=== PATIENT | female | born 1955 | race Caucasian/White ===

== ENCOUNTER 2019-06-02 20:56 | Observation (INO) | payer BC ==
[~2019-06-02] VITALS: Ht 157.5 cm; Wt 94.4 kg
[2019-06-02 22:23] LABS: BASOPHILS # (AUTO) 0.03 x10^3/uL (0-0.1); BASOPHILS % (AUTO) 1 % (0-1); EOSINOPHILS # (AUTO) 0.14 x10^3/uL (0-0.4); EOSINOPHILS % (AUTO) 2 % (1-7); LYMPHOCYTES # (AUTO) 1.78 x10^3/uL (1-3.4); LYMPHOCYTES % (AUTO) 28 % (22-44); MD NO; MEAN CORPUSCULAR HEMOGLOBIN 28.2 pg (27.0-34.8); MEAN CORPUSCULAR HGB CONC 32.5 g/dL (32.4-35.8); MEAN CORPUSCULAR VOLUME 86.7 fL (80-100); MONOCYTES # (AUTO) 0.35 x10^3/uL (0.2-0.8); MONOCYTES % (AUTO) 5 % (2-9); NEUTROPHILS # (AUTO) 4.15 x10^3/uL (1.8-6.8); NEUTROPHILS % (AUTO) 64 % (42-75); PLATELET COUNT 243 x10^3/uL (130-400); RED BLOOD COUNT 4.33 x10^6/uL (3.82-5.3); RED CELL DISTRIBUTION WIDTH 14.1 % (9.6-15.2)
[2019-06-02 22:29] LABS: ALANINE AMINOTRANSFERASE 18 U/L (12-78); ALBUMIN 3.3 g/dL (3.4-5.0); ANION GAP 6 mmol/L (5-15); CALCIUM 8.8 mg/dL (8.5-10.1); CHLORIDE 108 mmol/L (98-107); CREATININE 2.17 mg/dL (0.55-1.02)
[2019-06-02 22:33] LABS: ALKALINE PHOSPHATASE 73 U/L (45-117); BILIRUBIN,TOTAL 0.2 mg/dL (0.2-1.0); TOTAL PROTEIN 7.2 g/dL (6.4-8.2)
[2019-06-02 22:37] LABS: TROPONIN I 0.147 ng/mL (0.000-0.045)
[2019-06-03] MEDS ORDERED: ONDANSETRON 2MG/ML, 2ML IVPush PRN
[2019-06-03] MEDS ORDERED: BISACODYL 10 MG SUPP PR PRN
[2019-06-03] MEDS ORDERED: LIDODERM 5% PATCH TD PRN
[2019-06-03] MEDS ORDERED: ACETAMINOPHEN 325 MG TABLET PO PRN
[2019-06-03] MEDS ORDERED: TEMAZEPAM 15 MG CAPSULE PO PRN
[2019-06-03] MEDS ORDERED: hydrALAzine 20 MG/ML, 1ML IVPush PRN
[2019-06-03] MEDS ORDERED: morphine SULFATE 10 MG/ML, 1ML IVPush PRN
--- NOTE | 2019-06-03 01:16 | NUR ---
REPORT RECEIVED FROM RENETTA OWENS. ASSUMED CARE OF PT
[2019-06-03] MEDS ORDERED: HEPARIN 5,000 UNITS/ML, 1ML ONE (02:44)
[2019-06-03] MEDS: HEPARIN 5,000 UNITS/ML, 1ML SQ SCH ×3 (02:47→16:02)
--- NOTE | 2019-06-03 02:48 | NUR ---
BREAK RN: PT. MEDICATED PER JUL. MADE PT. AWARE OF HOLD STATUS IN ED AND ATTEMPTED TO PROVIDE PT. WITH HOSPITAL BED; PT. ADAMANTLY REFUSING HOSPTIAL BED. STATES "I AM PLENTY COMFORTABLE ON THIS BED, ALL I WOULD LIKE IS MORE BLANKETS." MORE BLANKETS PROVIDED. PT. DENIES OTHER NEEDS. ALL LIGHTS OFF AND DOOR CLOSED PER PT. REQUEST. CALL LIGHT IN REACH AND ALL SAFETY MEASURES OBSERVED.
--- NOTE | 2019-06-03 04:40 | NUR ---
PT SLEEPING, RESPIRATIONS EVEN AND UNLABORED. VITALS STABLE. WILL CONTINUE TO MONITOR.
[2019-06-03 04:41] LABS: TROPONIN I 0.127 ng/mL (0.000-0.045)
--- NOTE | 2019-06-03 05:40 | NUR ---
PT SLEEPING. RESPIRATIONS EVEN AND UNLABORED. ALL VITALS REMAIN STABLE. WILL CONTINUE TO MONITOR.
--- NOTE | 2019-06-03 06:17 | NUR ---
PT AWAKE, AMBULATORY TO RESTROOM, STEADY GAIT NOTED. PT OFFERED A HOSPITAL BED AGAIN, STILL REFUSES IT. PT BACK TO ROOM WITHOUT DIFFICULTY, SITTING IN CHAIR UPON REQUEST, WATCHING TV. DENIES ANY OTHER NEEDS AT THIS TIME.
[2019-06-03] MEDS ORDERED: NEOSPORIN OINT. PKT 1 PACKET ONE (07:18)
--- NOTE | 2019-06-03 07:18 | NUR ---
REPORT TO RENETTA ANAND
--- NOTE | 2019-06-03 07:20 | NUR ---
REC BS REPORT PT SITTING UP IN CHAIR
--- NOTE | 2019-06-03 07:30 | NUR ---
PT REPORTS BREAK IN HTE SKIN OF HER R GREAT TOE PROVIDE HER WITH WARM WATER IN A BASIN WASH CLOTH TOWELS AND NEOSPORIN OINT
--- NOTE | 2019-06-03 10:15 | NUR ---
NM TO BS FOR INJECTION
[2019-06-03 10:27] LABS: TROPONIN I 0.126 ng/mL (0.000-0.045)
[2019-06-03] MEDS ORDERED: REGADENOSON 0.4 MG/5 ML SYRINGE ONE (10:43)
[2019-06-03 13:30] VITALS: BP 168/78
[2019-06-03] MEDS ORDERED: GLIM4TAB4 PO (13:57)
[2019-06-03] MEDS ORDERED: CLOP75TA52 PO (14:02)
[2019-06-03] MEDS ORDERED: ATOR10TA9 PO (14:03)
[2019-06-03] MEDS ORDERED: LISI-167 PO (14:03)
[2019-06-03] MEDS ORDERED: AMLO5TAB10 PO (14:04)
[2019-06-03] MEDS ORDERED: INSU100I13 SC (14:10)
[2019-06-03] MEDS ORDERED: OMEP-110 PO (14:13)
== END 2019-06-03 16:30 | disposition home or self-care (01) ==
LOC: ED 22:02 → EDIP 22:05 → INTOOBSV 22:05 → 5SO 06-03 13:16
PROVIDERS: ADMIT Family Medicine; ATTEND Internal Medicine
DX: I21.4 Non-ST elevation (NSTEMI) myocardial infarction (principal); E11.65 Type 2 diabetes mellitus with hyperglycemia; E11.40 Type 2 diabetes mellitus with diabetic neuropathy, unspecified; I10 Essential (primary) hypertension; M17.0 Bilateral primary osteoarthritis of knee; R53.83 Other fatigue; Z86.73 Personal history of transient ischemic attack (TIA), and cerebral infarction without residual deficits
CPT/HCPCS: 36415; 78452; 80053; 84484; 85025; 93005; 93017; 96372; 99284; A9502; G0378; J1644; J2785

== ENCOUNTER 2019-11-03 06:55 | Inpatient (IN) | payer BC ==
[~2019-11-03] VITALS: Ht 157.5 cm; Wt 92.7 kg
[~2019-11-03 06:55] MED LIST: AMLO5TAB10 PO; ATOR10TA9 PO; CLOP75TA52 PO; GLIM4TAB8 PO; INSU100I13 SC; LISI-167 PO; OMEP-110 PO
[2019-11-03] MEDS ORDERED: NITROGLYCERIN/D5W PMX 250 ML IV PRN (07:01)
--- NOTE | 2019-11-03 07:05 | NUR ---
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 SEEN BY ERP, LAB AT BS.
[2019-11-03] MEDS ORDERED: HEPARIN 25,000 UNITS/250ML PMX 250 ML ONE (07:24)
[2019-11-03 07:28] LABS: BASOPHILS # (AUTO) 0.03 x10^3/uL (0-0.1); BASOPHILS % (AUTO) 0 % (0-1); EOSINOPHILS # (AUTO) 0.15 x10^3/uL (0-0.4); EOSINOPHILS % (AUTO) 2 % (1-7); LYMPHOCYTES # (AUTO) 1.13 x10^3/uL (1-3.4); LYMPHOCYTES % (AUTO) 15 % (22-44); MD NO; MEAN CORPUSCULAR HEMOGLOBIN 28.3 pg (27.0-34.8); MEAN CORPUSCULAR VOLUME 85.6 fL (80-100); MEAN PLATELET VOLUME 10.1 fL (7.4-10.4); MONOCYTES # (AUTO) 0.37 x10^3/uL (0.2-0.8); MONOCYTES % (AUTO) 5 % (2-9); NEUTROPHILS # (AUTO) 5.88 x10^3/uL (1.8-6.8); NEUTROPHILS % (AUTO) 78 % (42-75); PLATELET COUNT 212 x10^3/uL (130-400); RED BLOOD COUNT 4.53 x10^6/uL (3.82-5.3)
[2019-11-03] MEDS ORDERED: HEPARIN 5,000 UNITS/ML, 1ML IV PRN (07:30)
[2019-11-03] MEDS ORDERED: HEPARIN 25,000 UNITS/250ML PMX 250 ML IV PRN (07:30)
[2019-11-03] MEDS ORDERED: HEPARIN 5,000 UNITS/ML, 1ML IV ONE (07:30)
[2019-11-03 07:38] LABS: ANION GAP 5 mmol/L (5-15); CALCIUM 9.1 mg/dL (8.5-10.1); CHLORIDE 111 mmol/L (98-107); CREATININE 2.18 mg/dL (0.55-1.02)
[2019-11-03 07:44] LABS: TROPONIN I 0.634 ng/mL (0.000-0.045)
--- NOTE | 2019-11-03 08:02 | NUR ---
PT RESTING ON GURNEY WITH EYES CLOSED, HEPARIN GTT STOPPED X1 HR PER PROTOCOL, PT RESPONDS APPROP TO STAFF, NAD/DENIES PAIN OR DISCOMFORT, COOMFORT MEASURES PROVIDED, CALL LIGHT WITHIN REACH.
--- NOTE | 2019-11-03 08:05 | NUR ---
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 SEEN BY ERP, LAB AT BS.
--- NOTE | 2019-11-03 08:33 | NUR ---
Pt to be admitted to card-tele, room 517. Report called to Cristal.
[2019-11-03 09:40] VITALS: BP 146/77
[2019-11-03] MEDS ORDERED: NITROGLYCERIN 0.4 MG BOTTLE (25 TABS) SL PRN (10:30)
[2019-11-03] MEDS ORDERED: ONDANSETRON 2MG/ML, 2ML IVPush PRN (10:30)
[2019-11-03] MEDS ORDERED: hydrALAzine 20 MG/ML, 1ML IVPush PRN (10:30)
[2019-11-03] MEDS: AMLODIPINE 10 MG TAB PO SCH (11:39)
[2019-11-03] MEDS: INSULIN LISPRO 100 UNITS/ML, PEN SQ-INSULIN SCH ×3 (11:55→21:00)
[2019-11-03 12:25] VITALS: BP 147/77
[2019-11-03 12:31] LABS: TROPONIN I 0.564 ng/mL (0.000-0.045)
[2019-11-03 14:59] VITALS: BP 147/77
[2019-11-03 17:20] LABS: TROPONIN I 0.599 ng/mL (0.000-0.045)
[2019-11-03 20:41] VITALS: BP 112/70
[2019-11-03] MEDS ORDERED: ATORVASTATIN 10 MG TABLET PO SCH (21:00)
[2019-11-03] MEDS: ATORVASTATIN 40 MG TABLET PO SCH (21:41)
[2019-11-04 03:23] VITALS: BP 121/63
[2019-11-04] MEDS ORDERED: SODIUM CHLORIDE 0.9% 1,000 ML IV SCH ×2 (06:00→13:18)
[2019-11-04 06:50] VITALS: BP 139/68
[2019-11-04] MEDS: INSULIN LISPRO 100 UNITS/ML, PEN SQ-INSULIN SCH ×4 (07:00→21:00)
[2019-11-04 07:20] LABS: ANION GAP 8 mmol/L (5-15); CALCIUM 9.2 mg/dL (8.5-10.1); CHLORIDE 111 mmol/L (98-107); CREATININE 2.16 mg/dL (0.55-1.02)
[2019-11-04 07:31] LABS: BASOPHILS # (AUTO) 0.04 x10^3/uL (0-0.1); BASOPHILS % (AUTO) 1 % (0-1); EOSINOPHILS # (AUTO) 0.17 x10^3/uL (0-0.4); EOSINOPHILS % (AUTO) 3 % (1-7); LYMPHOCYTES # (AUTO) 1.95 x10^3/uL (1-3.4); LYMPHOCYTES % (AUTO) 33 % (22-44); MD NO; MEAN CORPUSCULAR HEMOGLOBIN 28.3 pg (27.0-34.8); MEAN CORPUSCULAR HGB CONC 32.9 g/dL (32.4-35.8); MEAN CORPUSCULAR VOLUME 86.2 fL (80-100); MEAN PLATELET VOLUME 9.6 fL (7.4-10.4); MONOCYTES # (AUTO) 0.43 x10^3/uL (0.2-0.8); MONOCYTES % (AUTO) 7 % (2-9); NEUTROPHILS % (AUTO) 57 % (42-75); PLATELET COUNT 221 x10^3/uL (130-400); RED BLOOD COUNT 4.51 x10^6/uL (3.82-5.3); RED CELL DISTRIBUTION WIDTH 14.4 % (9.6-15.2)
[2019-11-04] MEDS: AMLODIPINE 10 MG TAB PO SCH (08:37)
[2019-11-04] MEDS: CLOPIDOGREL 75 MG TABLET PO SCH (08:38)
[2019-11-04] MEDS ORDERED: LISINOPRIL 10 MG TABLET PO SCH (09:00)
[2019-11-04] MEDS: ACETAMINOPHEN 325 MG TABLET PO PRN ×2 (10:38→21:26)
[2019-11-04] MEDS ORDERED: FENTANYL PF 100 MCG/2ML ONE (11:52)
[2019-11-04] MEDS ORDERED: MIDAZOLAM 1 MG/ML, 5ML ONE (11:52)
[2019-11-04] MEDS ORDERED: LIDOCAINE-MPF 1%, 5ML ONE (11:53)
[2019-11-04] MEDS ORDERED: BIVALIRUDIN 250 MG ONE ×2 (11:53→13:18)
[2019-11-04] MEDS ORDERED: HEPARIN 1,000 UNITS/ML, 10ML ONE (11:53)
[2019-11-04] MEDS ORDERED: TICAGRELOR 90 MG TABLET ONE (11:53)
[2019-11-04] MEDS ORDERED: VERAPAMIL 2.5 MG/ML, 2ML ONE (11:53)
[2019-11-04] MEDS ORDERED: BIVALIRUDIN 250 MG in SODIUM CHLORIDE 0.9% 50 ML IV SCH (13:18)
[2019-11-04] MEDS ORDERED: CLOPIDOGREL 75 MG TABLET ONE (13:18)
[2019-11-04] MEDS ORDERED: ASPIRIN 325 MG TABLET EC ONE (13:19)
[2019-11-04 15:27] VITALS: BP 133/77
[2019-11-04 20:06] VITALS: BP 151/68
[2019-11-04] MEDS: ATORVASTATIN 40 MG TABLET PO SCH (21:26)
[2019-11-05 03:00] VITALS: BP 127/59
[2019-11-05 04:19] LABS: ANION GAP 6 mmol/L (5-15); CALCIUM 8.9 mg/dL (8.5-10.1); CHLORIDE 115 mmol/L (98-107); CREATININE 1.72 mg/dL (0.55-1.02)
[2019-11-05] MEDS: ACETAMINOPHEN 325 MG TABLET PO PRN ×4 (04:56→22:45)
[2019-11-05 07:36] VITALS: BP 125/71
[2019-11-05] MEDS: INSULIN LISPRO 100 UNITS/ML, PEN SQ-INSULIN SCH ×4 (07:52→21:12)
[2019-11-05] MEDS: CLOPIDOGREL 75 MG TABLET PO SCH ×2 (09:07→09:16)
[2019-11-05] MEDS: ASPIRIN 81 MG TABLET EC PO SCH (09:15)
[2019-11-05] MEDS: AMLODIPINE 10 MG TAB PO SCH (09:15)
[2019-11-05 13:22] VITALS: BP 129/71
[2019-11-05 19:58] VITALS: BP 117/71
[2019-11-05] MEDS: ATORVASTATIN 40 MG TABLET PO SCH (20:58)
[2019-11-06 00:16] VITALS: BP 120/66
[2019-11-06] MEDS: ACETAMINOPHEN 325 MG TABLET PO PRN (05:02)
[2019-11-06 05:59] LABS: ANION GAP 10 mmol/L (5-15); CALCIUM 9.4 mg/dL (8.5-10.1); CHLORIDE 110 mmol/L (98-107)
[2019-11-06] MEDS: INSULIN LISPRO 100 UNITS/ML, PEN SQ-INSULIN SCH (07:00)
[2019-11-06 07:19] VITALS: BP 136/72
[2019-11-06] MEDS: CLOPIDOGREL 75 MG TABLET PO SCH ×2 (07:25→08:50)
[2019-11-06] MEDS: ASPIRIN 81 MG TABLET EC PO SCH (08:50)
[2019-11-06] MEDS: AMLODIPINE 10 MG TAB PO SCH (08:50)
[2019-11-06] MEDS ORDERED: CLOP75TA52 PO (10:58)
[2019-11-06] MEDS ORDERED: ATOR40TA PO (10:58)
[2019-11-06] MEDS ORDERED: ASPI81TA45 PO (10:58)
== END 2019-11-06 11:50 | disposition home or self-care (01) | DRG 247 ==
LOC: ED 07:55 → EDIP 07:56 → ED 08:00 → 5SO 09:17 → DCLOUNGE 11-06 11:36
PROVIDERS: ADMIT Hospitalist; ATTEND Hospitalist
PROC: 4A023N7 Measurement of Cardiac Sampling and Pressure, Left Heart, Percutaneous Approach (ICD-10-PCS; principal; 2019-11-04)
PROC: 027135Z Dilation of Coronary Artery, Two Arteries with Two Drug-eluting Intraluminal Devices, Percutaneous Approach (ICD-10-PCS; 2019-11-04)
PROC: B2111ZZ Fluoroscopy of Multiple Coronary Arteries using Low Osmolar Contrast (ICD-10-PCS; 2019-11-04)
PROC: B2151ZZ Fluoroscopy of Left Heart using Low Osmolar Contrast (ICD-10-PCS; 2019-11-04)
DX: I21.4 Non-ST elevation (NSTEMI) myocardial infarction (principal); I69.354 Hemiplegia and hemiparesis following cerebral infarction affecting left non-dominant side; E11.22 Type 2 diabetes mellitus with diabetic chronic kidney disease; E11.42 Type 2 diabetes mellitus with diabetic polyneuropathy; E78.5 Hyperlipidemia, unspecified; I12.9 Hypertensive chronic kidney disease with stage 1 through stage 4 chronic kidney disease, or unspecified chronic kidney disease; I25.10 Atherosclerotic heart disease of native coronary artery without angina pectoris; M17.10 Unilateral primary osteoarthritis, unspecified knee; N18.9 Chronic kidney disease, unspecified; R13.10 Dysphagia, unspecified; Z79.02 Long term (current) use of antithrombotics/antiplatelets; Z82.49 Family history of ischemic heart disease and other diseases of the circulatory system; Z87.891 Personal history of nicotine dependence; Z90.49 Acquired absence of other specified parts of digestive tract; Z88.2 Allergy status to sulfonamides; Z88.5 Allergy status to narcotic agent
CPT/HCPCS: 36415; 93458; 96365; 99285; C9600; C9601; 80048; 82040; 82962; 83735; 83880; 84100; 84484; 85025; 85520; 93005; 93306; 93356; 99156; 99157; C1760; C1769; C1894; G0378; J0583; J1644; J2250; J3010; C1725; C1874; C1887; J1815; J7030; Q9967